=== PATIENT | female | born 1990 | race African-American/Black ===

== ENCOUNTER 2019-08-04 14:23 | Emergency (ER) | payer MEDICAID, OTHER ==
[~2019-08-04] VITALS: Ht 165.1 cm; Wt 104.3 kg
[2019-08-04 14:39] VITALS: BP 134/84
[2019-08-04] MEDS ORDERED: KETOROLAC TROMETH 60MG/2ML VIAL IM ONE (15:45)
== END 2019-08-04 16:18 | disposition home or self-care (01) ==
LOC: ER 14:23
DX: G43.909 Migraine, unspecified, not intractable, without status migrainosus (principal)
CPT/HCPCS: 96372; 99283; J1885